=== PATIENT | male | born 1990 | race African-American/Black ===

== ENCOUNTER 2018-04-16 19:38 | Emergency (ER) | payer SELFPAY ==
[~2018-04-16] VITALS: Ht 193 cm; Wt 100.0 kg
[2018-04-16] MEDS ORDERED: IBUPROFEN 600MG TABLET PO ONE (22:45)
[2018-04-16 22:52] VITALS: BP 136/83
== END 2018-04-16 22:53 | disposition home or self-care (01) ==
LOC: ER 19:38 → EDSEX 19:38 → ER 22:53
DX: L03.113 Cellulitis of right upper limb (principal); R03.0 Elevated blood-pressure reading, without diagnosis of hypertension
CPT/HCPCS: 99283